=== PATIENT | male | born 2005 | race Caucasian/White ===

== ENCOUNTER 2025-01-19 15:39 | Emergency (ER) | payer BC, SELFPAY ==
--- OUTSIDE RECORDS SUMMARY | 2024-11-03 07:30 | XMS_ITS ---
Author Organization [facility] Address [address] [place] [address] Care Team Providers Care Improvement Lead Name Role Phone AylinSocorro davey Primary Care Provider Allergies Allergen (clinical drug ingredient) Drug/Non Drug Allergy documented on EMR Reaction Allergy Type Onset Date Status Penicillin rash Drug Allergy Active Results Component Value Reference Range Notes QUANTIFERON(R)-TB GOLD PLUS, 1 TUBE (Not yet reviewed by provider) Interpretation: Performing Lab:BONG, [facility]te[facility] Pittsburgh[address] Eulogio Wisdom Notes/Report: Received Date: FASTING QUANTIFERON(R)-TB [...] TB2 Antigen tube is coated with the M. tuberculosis-specific antigens designed to elicit responses from TB antigen primed CD4+ helper and CD8+ cytotoxic T-lymphocytes. For additional information, please refer to https://education.[employer]/faq/HXN628 (This link is being provided for informational/ educational purposes only.) LIPID PANEL Reviewed date:11/04/2024 09:51:21 AM Interpretation:chol 149 ldl 76 hdl 59 trig 48 Performing Lab:BONG [employer] [id number] 9[facility] [facility], [facility] CenterSedeQD[address] Eulogio Wisdom Notes/Report: Received Date: FASTING FASTING FASTING FASTING CHOLESTEROL, TOTAL 149 <200 mg/dL HDL CHOLESTEROL 59 > OR = 40 mg/dL TRIGLYCERIDES 48 <150 mg/dL LDL-CHOLESTEROL 76 Reference range: <100 Desirable range <100 mg/dL for primary prevention; <70 mg/dL for patients with CHD or diabetic patients with > or = 2 CHD risk factors. LDL-C is now calculated using the Patricia calculation, which is a validated novel method providing better accuracy than the Friedewald equation in the estimation of LDL-C. Luis MEMBRENO et al. KEENAN. 2013;310(19): 0033-7353 (http://education.Rukuku/faq/AMD542) CHOL/HDLC RATIO 2.5 <5.0 (calc) NON HDL CHOLESTEROL 90 <130 mg/dL (calc) For patients with diabetes plus 1 major ASCVD risk factor, treating to a non-HDL-C goal of <100 mg/dL (LDL-C of <70 mg/dL) is considered a therapeutic option. COMPREHENSIVE METABOLIC PANE L Reviewed date:11/04/2024 09:51:21 AM Interpretation:ast 44 Performing Lab:BONG [employer] [id number] [address] [facility], [facility] CenterDsapMG[address] Eulogio Wisdom Notes/Report: Received Date: FASTING FASTING [...] Reviewed date:11/04/2024 09:51:21 AM Interpretation:Normal Performing Lab:BONG, [employer] [id number] [address] [employer], Ludi labsBnwlFI[address] Eulogio Wisdom Notes/Report: Received Date: FASTING FASTING [...] MPV 10.9 7.5-12.5 fL ABSOLUTE NEUTROPHILS 2145 2749-2423 cells/uL ABSOLUTE LYMPHOCYTES 2684 850-3900 cells/uL ABSOLUTE MONOCYTES 594 200-950 cells/uL ABSOLUTE EOSINOPHILS 50 15-500 cells/uL ABSOLUTE BASOPHILS 28 0-200 cells/uL NEUTROPHILS 39 LYMPHOCYTES 48.8 MONOCYTES 10.8 EOSINOPHILS 0.9 BASOPHILS 0.5 TSH Reviewed date:11/04/2024 09:51:21 AM Interpretation:1.61 Performing Lab:BONG, [employer] [id number], StrandsIyahLG[address] Eulogio Wisdom Notes/Report: Received Date: FASTING FASTING [...] Signs Temperature 97.5 degrees Fahrenheit 11/04/19 25 Blood pressure systolic 120 mm Hg 11/04/19 25 Blood pressure diastolic 80 mm Hg 025 Heart Rate 65 /min 11/03/2024 Respiratory Rate 16 /min 11/03/2024 Height 70 in 11/03/2024 Weight 165 lbs 11/03/2024 BMI 23.67 kg/m2 11/03/2024 Oximetry 99 % 11/03/2024 Encounters Encounter Location Date Provider Diagnosis [facility] Isaac Villagomez [address] [address] 11/03/2024 Socorro Villagomez Annual physical exam Z00.00 [...] * BRO EASLEY:2005 ( 19 yo M)Acc No.[id number]:11/03/2024 Progress Notes Patient: LYNDA CATES Provider: Carmelina VILLAGOMEZ DO :2005 A ge:19 Y S ex:Male Date:11/03/2024 Address:[address] [place] [address] [address], [place] [address] Subjective: * Chief Complaints: * 1 . Establish. * HPI: D epression Screening: PHQ-2 (2015 Edition) L ittle interest or pleasure in doing things??Not at all F eeling down, depressed, or hopeless? N ot at all T otal Score 0 G eneral: pt here to est. care and for annual physical doing well [facility]. * ROS: G eneral/Constitutional: Patient [...] with exam. ? Assessment: * Assessment: 1. A nnual physical exam - Z00.00 (Primary) 2 . S creening for tuberculosis - Z11.1 Plan: * Treatment: Value Reference Range C olor LT YELLOW * C larity CLEAR * G lucose NEG * B ilirubin NEG * K etones NEG * S pecific [place] 1.020 * B lood NEG * p [...] * Procedure Codes: 8 0061 CARDIAC RISK, 43623 GENERAL HEALTH PANEL * Follow Up: 1 Year * * Electronic signature of Bashir Villagomez DO on 01/19/2025 at 06:02 PM CDT Sign off status: Pending * Provider: Carmelina VILLAGOMEZ DO Date: 0 11/03/2024 Generated for Carlos Enrique houston/Dottie/eTransmitting on: 0 01/19/2025 06:02 PM CDT History and Physical Notes * HPI (History of Present Illness) Category Sub-Category Detail Notes Category Not es General pt here to est. care and for annual physical doing well [facility] Depression Screening PHQ-2 (2015 Edition) Little interest or pleasure in doing things?: Not at all Feeling down, depressed, or hopeless?: N ot at all Total Score: 0 Examination Category Sub-Category Detail Notes Category Not es General Examination GENERAL APPEARANCE: in no ac [place] distress, well developed, well nourished HEAD: normocephalic, [...]
--- NOTE | ~2025-01-19 | CT_ITS ---
EXAMINATION: CT BRAIN W/O DATE: 01/19/2025 17:18 INDICATION: Dizziness. Vision changes. TECHNIQUE: Computed tomography (CT) of the head was performed without intravenous contrast. The dose-length product was 605.33 mGy-cm. Automated exposure control and iterative reconstruction technique were employed. COMPARISON: No prior studies for comparison. FINDINGS: Normal brain parenchymal volume for age. Normal smith-white differentiation. No acute intracranial hemorrhage, infarction, mass or mass effect. No ventriculomegaly or midline shift. Midline sagittal images demonstrate a normal corpus callosum, craniovertebral junction and sella turcica. Basilar cisterns are patent. Paranasal sinuses and mastoids are pneumatized. No depressed skull fractures. IMPRESSION: 1. No acute intracranial abnormality. Reviewed, dictated and finalized at location O.
--- OUTSIDE RECORDS SUMMARY | 2025-01-19 14:45 | XMS_ITS | Encounter Summary ---
Author Organization [facility] Healthcare Address [address] [place] [address] Care Team Providers Care Property And Supply Officer Name Role Phone Unknown, Notinfile Primary Care Provider Unavail able Reason for Visit * Reason Comments Dizziness Reports the last 2-3 days he feels like he's going to pass out. Has dizziness and blurred vision. Reports this is not with positional changes. Encounter Details Date Type Department Care Team (Late st Contact Info) Description 01/19/2025 2:45 PM CDT Office Visit [facility] at [address] [address] Catrachita Correa PA [address] [place] [address] [address] [place] [address] Dizziness (Primary Dx) Social History Tobacco Use Types Packs/Day Years Used Date Smoking Tobacco: Never Assessed Sex and Gender Information Value Date Recorded Sex Assigned at Not on file Legal Sex Male 2:29 PM CDT Gender Identity Not on file Sexual Orientation Not on file documented as of this encounter Last Filed Vital Signs Vital Sign Reading Time Taken Comments Blood Pressure 142/84 01/19/2025 2:44 PM CDT sta nding Pulse 74 01/19/2025 2:44 PM CDT Temperature 37.3 C (99.1 F) 01/19/2025 2:40 PM CDT Respiratory Rate 16 01/19/2025 2:40 PM CDT Oxygen Saturation 99% 01/19/2025 2:40 PM CDT Inhaled Oxygen Concentration - - Weight 73 kg (161 lb) 01/19/2025 2:40 PM CDT Height - - Body Mass Index - - documented in this encounter Progress Notes * Catrachita Correa PA - 01/19/2025 2:45 PM CDT Images from the original note were not included. Subjective/Objective Patient ID: Star Nicole is a 19 y.o. male. This patient has verbally consented to recording this visit in order to utilize AI technology in generating this note. Chief Complaint Dizziness (Reports the last 2-3 days he feels like he's going to pass out. Has dizziness and blurred vision. Reports this is not with positional changes.) History of Present Illness Star Nicole is a 19 year old male who presents with dizziness and lightheadedness for three days. Dizziness and presyncope - Dizziness and lightheadedness for three days, worsening today - Symptoms are episodic, occurring multiple times per day - Episodes frequently occur when sitting in class or driving - Sensation of near syncope during episodes - Blurry vision accompanies episodes of feeling faint - No chest pain, shortness of breath, headache, numbness, or tingling Caffeine intake - Consumed 400 mg of caffeine on Thursday, exceeding usual intake of 200 mg per day - Reduced caffeine intake to 200 mg on Thursday and none today - Dizziness persists despite reduction in caffeine intake Sleep pattern - Slept eight hours last night - Poor sleep in the nights prior to presentation Associated symptoms and exposures - No recent illness, upper respiratory symptoms, sore throat, or fever - Denies drug use or vaping Review of Systems All other systems reviewed and are negative. Physical Exam Physical Exam Constitutional: General: He is not in acute distress. HENT: Head: Normocephalic and atraumatic. Right Ear: External ear normal. Left Ear: External ear normal. Nose: Nose normal. Mouth/Throat: Pharynx: Oropharynx is clear. Eyes: Pupils: Pupils are equal, round, and reactive to light. Cardiovascular: Rate and Rhythm: Normal rate. Pulmonary: Effort: Pulmonary effort is normal. Musculoskeletal: General: Normal range of motion. Cervical back: Normal range of motion. Skin: General: Skin is warm and dry. Neurological: General: No focal deficit present. Mental Status: He is alert and oriented to person, place, and time. Cranial Nerves: No cranial nerve deficit. Motor: No weakness. Coordination: Coordination normal. Gait: Gait normal. Psychiatric: Mood and Affect: Mood normal. Behavior: Behavior normal. Vitals: 01/19/25 1440 01/19/25 1443 01/19/25 1444 BP: 124/64 134/82 142/84 Pulse: 74 73 74 Resp: 16 Temp: 37.3 ??C (99.1 ??F) SpO2: 99% Weight: 73 kg (161 lb) No results found. No past medical history on file. No current outpatient medications on file. Allergies Allergen Reactions Penicillins Rash Social History Tobacco Use Smoking status: None Smokeless tobacco: None Substance and Sexual Activity Drug use: None Sexual activity: None Alcohol Use: Not on file History reviewed. No pertinent surgical history. Procedures Assessment/Plan Results No results found for this or any previous visit (from the past 4 hours). Assessment & Plan Dizziness and presyncope with associated blurry vision Differential includes dehydration, electrolyte imbalance, cardiac or neurologic causes. Symptoms persist despite caffeine cessation. Vitals including orthostatics WNL. - Refer to ER for further evaluation and imaging -advise against driving himself due to presyncopal episode when driving here today, getting ride from a friend Diagnoses and all orders for this visit: Dizziness (Primary) Disposition ER JOSE Pinedo Cosigned by Harsh Villagran MD at 01/19/2025 3:03 PM CDT documented in this encounter Plan of Treatment Not on file documented as of this encounter Visit Diagnoses Diagnosis Dizziness- Primary Dizziness and giddiness documented in this encounter Care Teams Property And Supply Officer Relationship Specialty Start Date End Date Unknown, Notinfile PCP - General 01/19/25 documented as of this encounter
[2025-01-19 15:42] VITALS: BP 137/70; PULSE 67; RESP 18; TEMP 37.2; O2SAT 100
[2025-01-19 16:38] VITALS: PULSE 67; O2SAT 98
--- NOTE | 2025-01-19 16:58 | ED_ITS ---
HPI - Dizziness General Chief Complaint: Dizziness Stated Complaint: dizzy Time Seen by Provider: 01/19/25 16:25 History of Present Illness HPI Narrative: Patient is a 19-year-old male who presents to the ER with a 2 day history of dizziness, blurry vision, and near syncopal episodes. He reports he drank 400 mg of caffeine 2 days ago and started experiencing symptoms afterwards. Patient reports he only drank 200 mg of caffeine yesterday and has had no caffeine today. He reports his symptoms worsen when he sits up. Patient denies any headache, urinary symptoms, back pain, abdominal pain, nausea/vomiting, or recent sick contacts. He denies any other medical history relevant to this ER visit. Patient denies any recent sick contacts. Related Data Allergies Allergy/AdvReac Type Severity Reaction Status Date / Time Penicillins Allergy Intermediate Rash Verified 01/19/25 16:48 Review of Systems 2 Review of Systems: All systems reviewed & are unremarkable except as noted in HPI and below Exam 2 Narrative: GENERAL: Well appearing, well-nourished, non-toxic, in no acute distress. HEAD: Normocephalic, atraumatic. NECK: Supple. No adenopathy, no masses. RESPIRATORY: Airway patent, respirations nonlabored. Clear to auscultation bilaterally, no rales, rhonchi, wheezing. CARDIOVASCULAR: Regular rate and rhythm without murmurs, rubs, or gallops. Peripheral pulses 2+ and equal bilaterally. ABDOMINAL: Soft, nontender, nondistended, no hepatosplenomegaly. Normoactive BS. MUSCULOSKELETAL: Moves all extremities. Strength/ROM intact without gross deformities. SKIN: Warm, dry, normal color. No rashes. NEURO: A&O X3. Speech clear. Cranial nerves II-XII intact. No ataxic movements. PSYCHIATRIC: Appropriate mood and affect. Normal interaction. Course Vital Signs Vital signs: Vital Signs Temperature 37.2 C 01/19/25 15:42 Pulse Rate 67 01/19/25 15:42 Respiratory Rate 18 01/19/25 15:42 Blood Pressure 137/70 01/19/25 15:42 Pulse Oximetry 100 01/19/25 15:42 Oxygen Delivery Room Air 01/19/25 15:42 Temperature 37.2 C 01/19/25 15:42 Pulse Rate 70 01/19/25 17:30 Respiratory Rate 18 01/19/25 15:42 Blood Pressure 117/75 01/19/25 17:30 Pulse Oximetry 100 01/19/25 17:30 Oxygen Delivery Room Air 01/19/25 16:38 MDM - Dizziness MDM Narrative Medical decision making narrative: Patient is a 19-year-old male who presents to the ER with a 2 day history of dizziness, blurry vision, and near syncopal episodes. He reports he drank 400 mg of caffeine 2 days ago and started experiencing symptoms afterwards. Patient reports he only drank 200 mg of caffeine yesterday and has had no caffeine today. He reports his symptoms worsen when he sits up. Patient denies any headache, urinary symptoms, back pain, abdominal pain, nausea/vomiting, or recent sick contacts. He denies any other medical history relevant to this ER visit. Patient denies any recent sick contacts. Labs Ordered: CBC, CMP, UA, UDS Imaging Ordered: CT brain Medications Ordered: None necessary, patient declined meclizine Results: Patient's CBC, CMP, and UA were unremarkable. Diagnosis: vertigo Patient Education/Shared MDM: Results of lab work and imaging shared with patient. He reports he does not want a meclizine here in the ER as he has to drive home. Patient strongly advised to maintain hydration status upon discharge and follow-up with his PCP as soon as possible. He will be discharged home with a prescription for Meclizine. Strict return precautions provided. Patient verbalized understanding and is in agreement with plan. Vital signs stable at time of discharge. All questions answered. Differential Diagnosis Differential diagnosis: Likely benign paroxysmal positional vertigo, orthostatic hypotension and cerebrovascular accident Lab Data Attestation: I reviewed the patient's lab results. 01/19/25 17:10 01/19/25 17:10 Labs: Lab Results 01/19/25 Range/Units 17:10 WBC 6.4 (4.5-10.0) K/mm3 RBC 5.34 (4.6-6.20) M/mm3 Hgb 15.5 (14.0-18.0) g/dL Hct 45.5 (42.0-52.0) % MCV 85.2 (80-100) fl MCH 29.0 (26-34) pg MCHC 34.1 (32-36) g/dl RDW 12.1 (11.5-14.5) % Plt Count 243 (150-375) k/mm3 MPV 10.5 H (7.4-10.4) fl Immature Gran % (Auto) 0.2 (0-0.5) % Neut % (Auto) 51.1 (45.5-73.1) % Lymph % (Auto) 39.0 (18.3-44.2) % Pleasants % (Auto) 8.6 H (2.6-8.5) % Eos % (Auto) 0.5 (0-4.4) % Baso % (Auto) 0.6 (0.2-1.2) % Lymph # (Auto) 2.50 (0.9-3.2) K/mm3 Pleasants # (Auto) 0.6 (0.1-0.6) K/mm3 Eos # (Auto) 0.0 (0-0.3) K/mm3 Baso # (Auto) 0.0 (0.0-0.1) K/mm3 Abs Immat Gran (auto) 0.01 (0.00-0.031) K/mm3 Absolute Neuts (auto) 3.3 (1.3-6.7) K/mm3 Absolute Nucleated RBC 0.000 (0.0-0.012) K/mm3 Nucleated RBC % 0.0 (0.0-0.2) % Sodium 140 (137-145) mmol/L Potassium 4.3 (3.4-5.0) mmol/L Chloride 101 (98-107) mmol/L Carbon Dioxide 29 (22-30) mmol/L Anion Gap 10 (4-12) mmol/L BUN 13 (9-20) mg/dL Creatinine 0.90 (0.7-1.3) mg/dL Estim Creat Clear Calc 118 ml/min Estimated GFR > 60 (59 - ) Glucose 81 (65-110) mg/dL Calcium 9.2 (8.4-10.2) mg/dL Total Bilirubin 0.7 (0.2-1.3) mg/dL AST 29 (17-59) U/L ALT 20 (6-50) U/L Alkaline Phosphatase 53 (38-126) U/L Total Protein 7.6 (6.3-8.2) g/dL Albumin 4.9 (3.5-5.1) g/dL Urine Color Yellow (Yellow) Urine Appearance Turbid H (Clear) Urine pH 8.5 (5.0-9.0) Ur Specific Monroe 1.021 (1.001-1.035) Urine Protein Negative (Negative) mg/dL Urine Glucose (UA) Negative (Negative) mg/dL Urine Ketones Negative (Negative) mg/dL Ur Blood (Man) Negative (Negative) Urine Nitrate Negative (Negative) Urine Bilirubin Negative (Negative) Urine Urobilinogen 0.2 (<2.0) mg/dL Leukocyte Esterase Rfl Negative (Negative) ERIC/UL Urine RBC 0-2 (0-2) /hpf Urine WBC 0-5 (0-3) /hpf Ur Squamous Epith Cells None seen (Few) /hpf Urine Bacteria None seen /hpf Urine Casts 0-2 Urine Opiates Screen Negative (Negative) Urine Methadone Screen Negative (Negative) Ur Barbiturates Screen Negative (Negative) Ur Phencyclidine Scrn Negative (Negative) Ur Amphetamine Screen Negative (Negative) U Benzodiazepines Scrn Negative (Negative) Urine Cocaine Screen Negative (Negative) U Cannabinoids Screen Negative (Negative) Imaging Data Attestation: I personally reviewed and interpreted this imaging study as follows: Radiologist's impression: Impressions Head CT 01/19/25 17:18 IMPRESSION: 1. No acute intracranial abnormality. Discharge Plan Discharge Clinical Impression: Benign paroxysmal positional vertigo Patient Disposition: Home Condition: Stable Instructions: Antibiotic Form, Benign Paroxysmal Positional Vertigo (ED) Additional Instructions: Please return to the ER with any worsening symptoms. Follow-up with primary care provider as needed. Take all medications as prescribed. Please schedule appoint with your nose and throat if your symptoms do not improve. Patient Language: Japanese Prescriptions: New meclizine 25 mg tablet 25 mg PO TID Qty: 30 0RF Follow-up/Referrals: Tam Yeboah MD [Physician, Ear, Nose, Throat] Referral Note: ENT PHYSICIAN NOT ON STAFF,NONSTAFF [Non-Staff] Doug Rice MD [Physician, Family Practice] Referral Note: primary care provider Stand Alone Forms: Work/School Release IP Time of Disposition: 18:56
[2025-01-19 17:18] LABS: Hematocrit 45.5 % (42.0-52.0); Hemoglobin 15.5 g/dL (14.0-18.0); Immature Granulocyte Percent A 0.2 % (0-0.5); Lymphocytes Absolute Auto 2.50 K/mm3 (0.9-3.2); Mean Corpuscular HGB Conc 34.1 g/dl (32-36); Mean Corpuscular Hemoglobin 29.0 pg (26-34); Mean Corpuscular Volume 85.2 fl (80-100); Nucleated Red Blood Cells Absolute Auto 0.000 K/mm3 (0.0-0.012); Nucleated Red Blood Cells Perc 0.0 % (0.0-0.2); Platelet Count Result 243 k/mm3 (150-375); Red Blood Count 5.34 M/mm3 (4.6-6.20); White Blood Count 6.4 K/mm3 (4.5-10.0)
[2025-01-19 17:22] LABS: Add Urine Microscopic? YES; Appearance Urine Turbid (Clear); Glucose Urine UA Negative (Negative); Leukocyte Esterase Ur Negative LEU/UL (Negative); Nitrate Urine Negative (Negative); Non Pathogenic Casts 0-2; Specific Grav Ur 1.021 (1.001-1.035)
[2025-01-19 17:30] VITALS: BP 117/75; PULSE 70; O2SAT 100
[2025-01-19 17:34] LABS: Alanine Aminotransferase 20 U/L (6-50); Albumin Level 4.9 g/dL (3.5-5.1); Alkaline Phosphatase 53 U/L (38-126); Anion Gap 10 mmol/L (4-12); Aspartate Amino Transferase 29 U/L (17-59); Bilirubin,Total 0.7 mg/dL (0.2-1.3); Blood Urea Nitrogen 13 mg/dL (9-20); Calcium 9.2 mg/dL (8.4-10.2); Carbon Dioxide 29 mmol/L (22-30); Chloride 101 mmol/L (98-107); Estimated CRCL calculation 118 ml/min; Estimated Glomerular Filt Rate > 60; Glucose 81 mg/dL (65-110); Potassium 4.3 mmol/L (3.4-5.0); Sodium 140 mmol/L (137-145); Total Protein 7.6 g/dL (6.3-8.2)
[2025-01-19 17:51] LABS: Cannabinoid Screen Urine Negative (Negative)
--- OUTSIDE RECORDS SUMMARY | 2025-01-19 18:02 | XMS_ITS | Patient Health Record ---
Author Organization [facility] Address [address] [place] [address] Care Team Providers Care Mining Consultant Name Role Phone Zion FARIA, Sandor Primary Care Provider JONI Conrad Unavailable [phone] Allergies Allergen (clinical drug ingredient) Drug/Non Drug Allergy documented on EMR Reaction Allergy Type Onset Date Status PENICILLIN Unknown Drug Allergy Active Reason For Referral No Information Problems Problem Type SNOMED Code ICD Code Onset Dates Problem Status W/U Status Risk Notes Problem Chronic disease of tonsils AND/OR adenoids (86258038) Other chronic diseases of tonsils and adenoids (J35.8) Active confirmed Problem Bad breath - halitosis (69087438) Halitosis (R19.6) Active confirmed Plan Of Treatment No Information Insurance Providers Payer Name Payer Address Payer Phone Subscriber Number Group Number Insured Name Patient Relationship to Insured Coverage Start Date Coverage End Date [facility] [address] [place], [place] [id number] MILAD EASLEY Child - Insured has Financial Responsibility
--- OUTSIDE RECORDS SUMMARY | 2025-01-19 18:03 | XMS_ITS | Patient Health Record ---
Author Organization [facility] Address [address] [id number] Care Team Providers Care Tie Man Name Role Phone ROSA ISELA WHITE Primary Care Provider [phone] Allergies Allergen (clinical drug ingredient) Drug/Non Drug Allergy documented on EMR Reaction Allergy Type Onset Date Status amoxicillin Amoxicillin rash Drug Allergy Act dalia Reason For Referral No Information Immunizations Vaccine Route Administration Date Status Comme nts Varivax Unknown 03/14/2004 Administered Varivax Unknown 03/18/2007 Administered VAQTA Ped/Adol (HepA) syr Unknown 04/04/2009 Administered VAQTA Ped/Adol (HepA) syr Unknown 03/25/2010 Administered Trumenba IM Intramuscular 08/08/2021 Administered Prevnar Pneum V-7 Unknown 2003 Administered Prevnar Pneum V-7 Unknown 2003 Administered Prevnar Pneum V-7 Unknown 2003 Administered Prevnar Pneum V-7 Unknown 06/06/2004 Administered MMR II Unknown 03/14/2004 Administered MMR II Unknown 03/18/2007 Administered Menactra IM Intramuscular 10/23/2014 Administered Pt jermain almaz 5 minutes in the room, 10 minutes in the wtg room after shots to check for faintness. LILLIAM LEE. Menactra IM Intramuscular 06/24/2019 Administered IPOL Unknown 2003 Administered IPOL Unknown 2003 Administered IPOL Unknown 2003 Administered IPOL Unknown 05/24/2008 Administered Gardasil 9 syr IM Intramuscular 08/08/2021 Administered Gardasil 9 syr Unknown 10/10/2021 Administered Fluzone Quadrivalent >3yr syr IM Intramuscular 03/24/2013 Administered Fluzone Quadrivalent >3yr syr 0 02/04/2014 Administered Flumist Trivalent Unknown 04/14/2011 Administered Flu Tri PF 3yr &> IM Intramuscular 03/22/2012 Administered DAPTACEL (DTap) Unknown 2003 Administered DAPTACEL (DTap) Unknown 2003 Administered DAPTACEL (DTap) Unknown 2003 Administered DAPTACEL (DTap) Unknown 06/06/2004 Administered DAPTACEL (DTap) Unknown 05/24/2008 Administered Comvax (Hep B and Hib) Unknown 2003 Administered Comvax (Hep B and Hib) Unknown 2003 Administered Comvax (Hep B and Hib) Unknown 06/06/2004 Administered Adacel (Tdap) IM Intramuscular 03/24/2013 Administered Tda p is upper shot. Social History Tobacco Use: Social History Observation Description Date Details (start date - stop date) Never Smoker NA - NA Alcohol Question Answer Notes Did you have a drink containing alcohol in the p ast year? No Points 0 Interpretation Negative Household Smoke: Question Answer Notes Smoker in Household: no SECOND HAND SMOKE ASSESSMENT: Performed TOBACCO USE - Question Answer Notes Are you a: non tobacco user EXERCISE ASSESSMENT Question Answer Notes -ASSESSMENT PERFORMED: Yes How active are you? I'm physically activ e and don't need help to be more active How many times a week & arabella emeka per session do you exercise or participate in physical activity? 3-4 What type of exercise do you regularly do? organized sports Problems Problem Type SNOMED Code ICD Code Onset Dates Problem Status W/U Status Risk Notes Problem History of tonsillectomy (situation) (939903467) S/P tonsillectomy (Z90.89) Active confirmed Problem Tonsillolith (5273066) Tonsillolith (J35.8) Active confirmed Plan Of Treatment No Information Insurance Providers Payer Name Payer Address Payer Phone Subscriber Number Group Number Insured Name Patient Relationship to Insured Coverage Start Date Coverage End Date [facility] [address] [place], [place] [id number] Liliana Nicole Child - Insured has Financial Responsibility Medical (General) History Medical History History ICD Code Tonsil stones Chronic seasonal throat infection Full term born @ [facility] - sect ion Dry cough 786.2 Chronic tonsillitis J35.01 Surgical History Surgery Date(Month/Year) Hospitalization History Reason Date(Month/Year) orbital cellulitis 2004
--- OUTSIDE RECORDS SUMMARY | 2025-01-19 18:03 | XMS_ITS | Clinical Summary ---
Author Organization [facility] (Prior to 02/08/22) Address [address] [place] [address] Care Team Providers Care Senior Marketing Manager Name Role Phone Unavailable Primary Care Provider Unavailabl e Social History Tobacco Use Types Packs/Day Years Used Date Never Assessed Sex Assigned at Date Recorded Not on file Plan of Treatment Health Maintenance Due Date Last Done Comments Annual Wellness Visit 2003 COVID-19 Vaccine (#1) 2003 Influenza Vaccine 01/09/2025
--- OUTSIDE RECORDS SUMMARY | 2025-01-19 18:03 | XMS_ITS | Patient Health Record ---
Author Organization [facility] Address [address] [place] [address] Care Team Providers Care Poultry Picker Name Role Phone AylinSocorro davey Primary Care Provider Allergies Allergen (clinical drug ingredient) Drug/Non Drug Allergy documented on EMR Reaction Allergy Type Onset Date Status Penicillin rash Drug Allergy Active Results Component Value Reference Range Notes Automated Urinalysis (dipsti ck) Reviewed date:11/04/2024 09:51:21 AM Interpretation:Normal Performing Lab: Notes/Report: Normal Color LT YELLOW Clarity CLEAR Glucose NEG Bilirubin NEG Ketones NEG Specific [place] 1.020 Blood NEG pH 6.5 Protein NEG Urobilinogen NORM Nitrites NEG Leukocytes NEG QUANTIFERON(R)-TB GOLD PLUS, 1 TUBE (Not yet reviewed by provider) Interpretation: Performing Lab:CB, [facility], [facility] HospitalSciyFT[address] Eulogio Wisdom Notes/Report: Received Date: FASTING QUANTIFERON(R)-TB [...] T-lymphocytes. For additional information, please refer to https://kompany.Meedor/faq/QRX606 (This link is being provided for informational/ educational purposes only.) TSH Reviewed date:11/04/2024 09:51:21 AM Interpretation:1.61 Performing Lab:BONG, [facility] [employer], SnagFilmsGtveVH[address] Eulogio Wisdom Notes/Report: Received Date: FASTING FASTING FASTING FASTING TSH 1.61 0.40-4.50 mIU/L CBC (INCLUDES DIFF/PLT) Reviewed date:11/04/2024 09:51:21 AM Interpretation:Normal Performing Lab:BONG, [facility] [employer], SnagFilmsTyyxZL[address] Eulogio Wisdom Notes/Report: Received Date: FASTING FASTING [...] MPV 10.9 7.5-12.5 fL ABSOLUTE NEUTROPHILS 2145 2788-3799 cells/uL ABSOLUTE LYMPHOCYTES 2684 850-3900 cells/uL ABSOLUTE MONOCYTES 594 200-950 cells/uL ABSOLUTE EOSINOPHILS 50 15-500 cells/uL ABSOLUTE BASOPHILS 28 0-200 cells/uL NEUTROPHILS 39 LYMPHOCYTES 48.8 MONOCYTES 10.8 EOSINOPHILS 0.9 BASOPHILS 0.5 COMPREHENSIVE METABOLIC PANE L Reviewed date:11/04/2024 09:51:21 AM Interpretation:ast 44 Performing Lab:BONG [facility] [place], [facility] HospitalPlmrNH[address] Eulogio Wisdom Notes/Report: Received Date: FASTING FASTING FASTING FASTING GLUCOSE 89 65-99 mg/dL Fasting reference interval UREA NITROGEN (BUN) 11 7-25 mg/dL CREATININE 0.97 0.60-1.24 mg/dL EGFR 114 > OR = 60 mL/min/1.73m2 BUN/CREATININE RATIO SEE NOTE: 6- (calc) Not Reported: BUN and Creatinine are [...] 44 10-40 U/L ALT 40 9-46 U/L LIPID PANEL Reviewed date:11/04/2024 09:51:21 AM Interpretation:chol 149 ldl 76 hdl 59 trig 48 Performing Lab:BONG [facility]1355 [facility] [place], [facility] HospitalYkmdYY[address] Eulogio Wisdom Notes/Report: Received Date: FASTING FASTING [...] LDL-C. Luis MEMBRENO et al. KEENAN. 2013;310(19): 5353-2604 (http://education.Inktank/faq/YTX861) CHOL/HDLC RATIO 2.5 <5.0 (calc) NON HDL CHOLESTEROL 90 <130 mg/dL (calc) For patients with diabetes plus 1 major ASCVD risk factor, treating to a non-HDL-C goal of <100 mg/dL (LDL-C of <70 mg/dL) is considered a therapeutic option. Reason For Referral No Information Immunizations Vaccine Route Administration Date Status Comme nts DTaP Unknown 2003 Administered DTaP Unknown 2003 Administered DTaP Unknown 2003 Administered DTaP Unknown 06/06/2004 Administered DTaP Unknown 05/24/2008 Administered Hep A, ped/adol, 2 dose Unknown 04/04/2009 Administered Hep A, ped/adol, 2 dose Unknown 03/25/2010 Administered Hib-Hep B Unknown 2003 Administered Hib-Hep B Unknown 2003 Administered Hib-Hep B Unknown 06/06/2004 Administered HPV Unknown 08/08/2021 Administered HPV Unknown 10/10/2021 Administered IPV Unknown 2003 Administered IPV Unknown 2003 Administered IPV Unknown 2003 Administered IPV Unknown 05/24/2008 Administered menactra Unknown 10/23/2014 Administered menactra Unknown 06/24/2019 Administered Meningococcal B Trumenba Unknown 08/08/2021 Administere d MMR Unknown 03/14/2004 Administered MMR Unknown 03/18/2007 Administered Pneumococcal Unknown 2003 Administered Pneumococcal Unknown 2003 Administered Pneumococcal Unknown 2003 Administered Pneumococcal Unknown 06/06/2004 Administered Tdap Unknown 03/24/2013 Administered Tdap Unknown 10/06/2024 Administered Varicella Unknown 03/14/2004 Administered Varicella Unknown 03/18/2007 Administered Social History Tobacco Use: Social History Observation [...] point) Points 3 Interpretation Negative Vital Signs Heart Rate 74 /min 11/29/2024 Temperature 98.2 degrees Fahrenheit 11/29/2024 Respiratory Rate 16 /min 11/03/2024 Oximetry 98 % 11/29/2024 Blood pressure diastolic 70 mm Hg 11/29/2024 Height 70 in 11/29/2024 Blood pressure systolic 110 mm Hg 11/29/2024 Weight 165 lbs 11/29/2024 BMI 23.67 kg/m2 11/29/2024 Encounters Encounter Location Date Provider Diagnosis [facility] Isaacang Altamirano [address] [place] [phone] 11/03/2024 Socorro Altamirano Annual physical exam Z00.00 and Screening for tuberculosis Z11.1 [facility] Isaacfrancois Altamirano [address] [place] [phone] 11/29/2024 Socorro Altamirano Ear discomfort H92.0 9 Assessments Encounter Date Diagnosis (ICD Code) Assessment Notes Treatment Notes Treatment Clinical Notes Section Notes 11/03/2024 Annual physical exam (ICD-10 - Z00.00) - Patient is overall healthy with a normal physical exam - He is up to date with all his immunizations - Screening for TB was done and returned negative 11/03/2024 Screening for tuberculosis (ICD-10 - Z11.1) 11/29/2024 Ear discomfort (ICD-10 - H92.09) Patient instructed to take 10 mg Claritin daily. Patient also instructed to put mineral oil in the ears. Call Thursday, if nto better will write steroid prescription. 11/29/2024 Other Patient seen by Emperatriz Ardon OMS-III, supervised by Dr. Socorro Altamirano Plan Of Treatment Pending Test Test Name Order Date QUANTIFERON(R)-TB GOLD PLUS, 1 TUBE 10/10 Insurance Providers Payer Name Payer Address Payer Phone Subscriber Number Group Number Insured Name Patient Relationship to Insured Coverage Start Date Coverage End Date [facility] [address] [place] [address] [id number] Liliana Easley Child - Insured has Financial Responsibility Medical (General) History Surgical History Surgery Date(Month/Year) tonsillectomy
--- OUTSIDE RECORDS SUMMARY | 2025-01-19 18:03 | XMS_ITS | Clinical Summary ---
Author Organization [facility] Address [address] [place] [address] Care Team Providers Care Coding Technician Name Role Phone Sandor Donovan MD Primary Care Provider +1- [phone] Social History Tobacco Use Types Packs/Day Years Used Date Smoking Tobacco: Never Assessed Inadequate Housing Answer Date Recorded Social Determinants: Housing (Overall Score Help er) 0 01/07/2019 Sex and Gender Information Value Date Recorded Sex Assigned at Not on file Legal Sex Male 1:20 PM CDT Gender Identity Not on file Sexual Orientation Not on file Last Filed Vital Signs Vital Sign Reading Time Taken Comments Blood Pressure 116/69 09/25/2016 1:49 PM CDT Pulse 72 09/25/2016 1:49 PM CDT Temperature 36.9 C (98.4 F) 09/25/2016 1:49 PM CDT Respiratory Rate - - Oxygen Saturation - - Inhaled Oxygen Concentration - - Weight 42.5 kg (93 lb 11.1 oz) 01/05/2017 7:41 A M CDT Height - - Body Mass Index - - Plan of Treatment Health Maintenance Due Date Last Done Comments Well Child Visit (ages 3 - 21) 2006 Depression Screening 2015 Varicella Vaccine (1 of 2 - 13+ 2-dose series) 2016 HPV Vaccine (1 - Male 3-dose series) 2018 Meningococcal Serogroup B Va ccine (1 of 2 - Standard) 2019 DTaP/Tdap/Td Vaccine (1 - Tdap) 2022 Hepatitis B Vaccine (1 of 3 - 19+ 3-dose series) 2022 COVID-19 Vaccine (2023-2 5 season) 2025 Influenza Vaccine (#1) 2025 Hepatitis A Vaccine Aged Out No longe r eligible based on patient's age to complete this topic Meningococcal Vaccine Aged Out No lenore aquiles eligible based on patient's age to complete this topic Pneumococcal Vaccine 0-49 Aged Out No longer eligible based on patient's age to complete this topic Insurance [facility] Care Teams Coding Technician Relationship Specialty Start Date End Date Sandor Donovan MD PCP - General Pediatrics 07/06/19
--- OUTSIDE RECORDS SUMMARY | 2025-01-19 18:03 | XMS_ITS | Clinical Summary ---
Author Organization [facility] [address] Address [address] [place] [phone] Care Team Providers Care Biller Name Role Phone Unknown, Notinfile Primary Care Provider Unavail able Allergies Active Allergy Reactions Criticality Noted Date Comments Penicillins Rash Medium 01/19/2025 Medications No known medications Active Problems No known active problems Encounters Date Type Department Care Team Description 01/19/2025 2:45 PM CDT Office Visit [facility] Convenient Care at [address] [address] Catrachita Correa PA Dizziness (Primary Dx) from Last 3 Months Social History Tobacco Use Types Packs/Day Years Used Date Smoking Tobacco: Never Assessed Sex and Gender Information Value Date Recorded Sex Assigned at Not on file Legal Sex Male 2:29 PM CDT Gender Identity Not on file Sexual Orientation Not on file Obstetrics History Last Filed Vital Signs Vital Sign Reading [...] Health Maintenance Due Date Last Done Comments Depression Screening 2003 Hepatitis C Screening 2003 Regular Well Visit/Exam 18-64 2021 HPV Vaccines (3 - Male 3-dos e series) 02/07/2022 10/10/2021, 08/08/2021 Meningococcal B Vaccine (2 o f 2 - Trumenba SCDM 2-dose series) 02/07/2022 08/08/2021 DTaP/Tdap/Td Vaccine (8 - Td or Tdap) 10/06/2034 10/06/2024, 03/24/2013, 05/24/2008, Additional history exists Hepatitis B Screening Completed 06/06/2004 , 2003, 2003 Pneumococcal vaccine <65 Completed 005, 2003, 2003, Additional history exists Varicella Vaccines Completed 03/18/2007, 03/14/2004 Meningococcal Vaccine Completed 06/24/2019, 015 Influenza Vaccine Completed 01/13/2025, , 03/24/2013, Additional history exists Insurance [facility] Care Teams Biller Relationship Specialty Start Date End Date Unknown, Notinfile PCP - General 01/19/25
[2025-01-19 19:05] VITALS: BP 116/61; PULSE 73; RESP 16; O2SAT 97
== END 2025-01-19 19:05 | disposition home or self-care (01) ==
PROVIDERS: Emergency Provider Registered Nurse
DX: H81.10 Benign paroxysmal vertigo, unspecified ear (principal); Z79.899 Other long term (current) drug therapy; Z79.52 Long term (current) use of systemic steroids
CPT/HCPCS: 36415; 70450; 80053; 80307; 81001; 85025; 99284

== ENCOUNTER 2025-01-31 10:18 | Outpatient (CLI) | payer BC, SELFPAY ==
--- OUTSIDE RECORDS SUMMARY | 2024-11-03 07:30 | XMS_ITS ---
Author Organization [facility] Address [address] [place] [address] Care Team Providers Care Ad Copy Writer Name Role Phone AylinSocorro davey Primary Care Provider [phone] Allergies Allergen (clinical drug ingredient) Drug/Non Drug Allergy documented on EMR Reaction Allergy Type Onset Date Status Penicillin rash Drug Allergy Active Results Component Value Reference Range Notes QUANTIFERON(R)-TB GOLD PLUS, 1 TUBE (Not yet reviewed by provider) Interpretation: Performing Lab:BONG, [facility] Eulogio Wisdom Notes/Report: Received Date: FASTING QUANTIFERON(R)-TB GOLD PLUS, 1 TUBE NEGATIVE NEGATIVE Negative test result. M. tuberculosis complex infection unlikely. NIL 0.02 MITOGEN-NIL 8.94 TB1-NIL 0.03 TB2-NIL 0.03 The Nil tube value reflects the background interferon gamma immune response of the patient's blood sample. This value has been subtracted from the patient's displayed TB and Mitogen results. Lower than expected results with the Mitogen tube prevent false-negative Quantiferon readings by detecting a patient with a potential immune suppressive condition and/or suboptimal pre-analytical specimen handling. The TB1 Antigen tube is coated with the M. tuberculosis-specific antigens designed to elicit responses from TB antigen primed CD4+ helper T-lymphocytes. The TB2 Antigen tube is coated with the cytotoxic T-lymphocytes. For additional information, please refer to https://education.[place]60.com/faq/TGB985 (This link is being provided for informational/ educational purposes only.) M. tuberculosis-specific antigens designed to elicit responses from TB antigen primed CD4+ helper and CD8+ LIPID PANEL Reviewed date:11/04/2024 09:51:21 AM Interpretation:chol 149 ldl 76 hdl 59 trig 48 Performing Lab:BONG [facility] ([facility]) [id number] [facility], [facility] CenterCgbvMW[address] Eulogio Wisdom Notes/Report: Received Date: FASTING FASTING FASTING FASTING CHOLESTEROL, TOTAL 149 <200 mg/dL HDL CHOLESTEROL 59 > OR = 40 mg/dL TRIGLYCERIDES 48 <150 mg/dL LDL-CHOLESTEROL 76 Reference range: <100 Desirable range <100 mg/dL for primary prevention; <70 mg/dL for patients with CHD or diabetic patients with > or = 2 CHD risk factors. LDL-C is now calculated using the Luis-Hodges calculation, which is a validated novel method providing better accuracy than the Friedewald equation in the estimation of LDL-C. Luis MEMBRENO et al. KEENAN. 2013;310(19): 2344-1626 (http://M[employer] Project.Front Row/faq/VFR663) CHOL/HDLC RATIO 2.5 <5.0 (calc) NON HDL CHOLESTEROL 90 <130 mg/dL (calc) For patients with diabetes plus 1 major ASCVD risk factor, treating to a non-HDL-C goal of <100 mg/dL (LDL-C of <70 mg/dL) is considered a therapeutic option. COMPREHENSIVE METABOLIC PANE L Reviewed date:11/04/2024 09:51:21 AM Interpretation:ast 44 Performing Lab:BONG [facility] ([facility]) [id number] [employer], [facility] CenterMmqxRM[address] Eulogio Wisdom Notes/Report: Received Date: FASTING FASTING FASTING FASTING GLUCOSE 89 65-99 mg/dL Fasting reference interval UREA NITROGEN (BUN) 11 7-25 mg/dL CREATININE 0.97 0.60-1.24 mg/dL EGFR 114 > OR = 60 mL/min/1.73m2 BUN/CREATININE RATIO SEE NOTE: 6-22 (calc) Not Reported: BUN and Creatinine are within reference range. SODIUM 140 135-146 mmol/L POTASSIUM 4.1 3.5-5.3 mmol/L CHLORIDE 103 98-110 mmol/L CARBON DIOXIDE 29 20-32 mmol/L CALCIUM 9.6 8.6-10.3 mg/dL PROTEIN, TOTAL 6.9 6.1-8.1 g/dL ALBUMIN 4.9 3.6-5.1 g/dL GLOBULIN 2.0 1.9-3.7 g/dL (calc) ALBUMIN/GLOBULIN RATIO 2.5 1.0-2.5 (calc) BILIRUBIN, TOTAL 1.1 0.2-1.2 mg/dL ALKALINE PHOSPHATASE 56 36-130 U/L AST 44 10-40 U/L ALT 40 9-46 U/L CBC (INCLUDES DIFF/PLT) Reviewed date:11/04/2024 09:51:21 AM Interpretation:Normal Performing Lab:BONG, [facility] ([facility]) [id number] Ship[employer] [place], Qunar.comWpbaYT[address] Eulogio Wisdom Notes/Report: Received Date: FASTING FASTING FASTING FASTING WHITE BLOOD CELL COUNT 5.5 3.8-10.8 Thousand/ uL RED BLOOD CELL COUNT 5.15 4.20-5.80 Million/uL HEMOGLOBIN 15.5 13.2-17.1 g/dL HEMATOCRIT 47.8 38.5-50.0 % MCV 92.8 80.0-100.0 fL MCH 30.1 27.0-33.0 pg MCHC 32.4 32.0-36.0 g/dL For adults, a slight decrease in the calculated MCHC value (in the range of 30 to 32 g/dL) is most likely not clinically significant; however, it should be interpreted with caution in correlation with other red cell parameters and the patient's clinical condition. RDW 12.9 11.0-15.0 % PLATELET COUNT 227 140-400 Thousand/uL MPV 10.9 7.5-12.5 fL ABSOLUTE NEUTROPHILS 2145 0416-8377 cells/uL ABSOLUTE LYMPHOCYTES 2684 850-3900 cells/uL ABSOLUTE MONOCYTES 594 200-950 cells/uL ABSOLUTE EOSINOPHILS 50 15-500 cells/uL ABSOLUTE BASOPHILS 28 0-200 cells/uL NEUTROPHILS 39 LYMPHOCYTES 48.8 MONOCYTES 10.8 EOSINOPHILS 0.9 BASOPHILS 0.5 TSH Reviewed date:11/04/2024 09:51:21 AM Interpretation:1.61 Performing Lab:BONG, [facility] ([facility]) [id number], SecureAuthSohtMS[address] Eulogio Wisdom Notes/Report: Received Date: FASTING FASTING FASTING FASTING TSH 1.61 0.40-4.50 mIU/L REASON FOR VISIT Establish Social History Tobacco Use: Social History Observation Description Date Details (start date - stop date) Never Smoker NA - NA Sex Assigned At : Social History Observation Description Sex Assigned At Male Tobacco Control (Standard) Question Answer Notes Tobacco use: Nonsmoker AUDIT-C (Standard) Question Answer Notes Did you have a drink contain ing alcohol in the past year? Yes How often did you have a dri nk containing alcohol in the past year? Monthly or less (1 point) How many drinks did you have on a typical day when you were drinking in the past year? 5 or 6 drinks (2 points) How often did you have six o r more drinks on one occasion in the past year? Never (0 point) Points 3 Interpretation Negative Vital Signs Temperature 97.5 degrees Fahrenheit 11/04/19 25 Heart Rate 65 /min 11/03/2024 Blood pressure systolic 120 mm Hg 11/04/19 25 Blood pressure diastolic 80 mm Hg 025 Weight 165 lbs 11/03/2024 Height 70 in 11/03/2024 BMI 23.67 kg/m2 11/03/2024 Respiratory Rate 16 /min 11/03/2024 Oximetry 99 % 11/03/2024 Encounters Encounter Location Date Provider Diagnosis [facility] Isaac Villagomez [address] [address] 11/03/2024 Socorro Villagomez Annual physical exam Z00.00 and Screening for tuberculosis Z11.1 Assessments Encounter Date Diagnosis (ICD Code) Assessment Notes Treatment Notes Treatment Clinical Notes Section Notes 11/03/2024 Annual physical exam (ICD-10 - Z00.00) - Patient is overall healthy with a normal physical exam - He is up to date with all his immunizations - Screening for TB was done and returned negative 11/03/2024 Screening for tuberculosis (ICD-10 - Z11.1) Plan Of Treatment Treatment Notes Assessment Notes Annual physical exam - Patient is overall healthy with a normal physical exam - He is up to date with all his immunizations - Screening for TB was done and returned negative Pending Test Test Name Order Date QUANTIFERON(R)-TB GOLD PLUS, 1 TUBE 10/10 Next Appt Details Follow Up: 1 Year, Reason: Progress Notes * BRO EASLEY:2005 ( 19 yo M)Acc No.[id number]:11/03/2024 Progress Notes Patient: LYNDA CATES Provider: Carmelina VILLAGOMEZ DO :2005 A ge:19 Y S ex:Male Date:11/03/2024 Address:[address] [place] [address] [address], [place] [address] Subjective: * Chief Complaints: * 1 . Establish. * HPI: D epression Screening: PHQ-2 (2015 Edition) L ittle interest or pleasure in doing things??Not at all F eeling down, depressed, or hopeless? N ot at all T otal Score 0 G eneral: pt here to est. care and for annual physical [facility]. * ROS: G eneral/Constitutional: Patient denies c hills, fever, headache, lightheadedness.? E NT: Patient denies d ifficulty swallowing, ear pain, hoarseness, nosebleed. R espiratory: Patient denies c hest pain , cough , shortness of breath.? C ardiovascular: Patient denies c hest pain, chest pain with exertion, claudication, dizziness, dyspnea on exertion, orthopnea. G astrointestinal: Patient denies a bdominal pain , change in bowel habits.? G enitourinary: Patient denies b lood in the urine, difficulty urinating, frequent urination, painful urination. M usculoskeletal: Patient denies m uscle aches, painful joints, swollen joints, weakness. S kin: Patient denies h paula, itching, rash. N eurologic: Patient denies dizziness, gait abnormality. ? P sychiatric: Patient denies a nxiety, depressed mood, loss of appetite.? * Medical History: N o Reported Medical History.Medical History Verified. * Surgical History: t onsillectomy . * Family History: 1 brother(s) - healthy. . mother - healthy dad - healthy paternal grandmother - breast cancer. * Social History: T obacco Use: T obacco Control (Standard) T obacco use: N onsmoker D rug/Alcohol: A OLIVE-C (Standard) D id you have a drink containing alcohol in the past year? Y es H ow often did you have a drink containing alcohol in the past year? M onthly or less (1 point) H ow many drinks did you have on a typical day when you were drinking in the past year? 5 or 6 drinks (2 points) H ow often did you have six or more drinks on one occasion in the past year? N ever (0 point) P oints 3 I nterpretation N egative D rugs/Alcohol: C affeine I ntake: e nergy drink once a week Do you smoke marijuana?: Denies. Do you drink alcohol?: socially. S NEELAM Screening: F ood Insecurity C urrently or in the past 3 months, have you worried your food would run out before you had money to buy more? N o I n the past 12 months, have you run out of food or been unable to get more? N o Transportation C urrently or in the past 3 months, has lack of transportation kept you from medical appointments, getting food or medicine, provide care to a family member? N o Utilities C urrently or in the past 12 months, have you or household members gone without utilities (heat, water, electricity)? N o Employment Status A re you currently unemployed and requesting resources? N o Interpersonal Safety A re you currently concerned about physical or emotional safety? N o I n the past 12 months, have you been hit, slapped, kicked or otherwise physically hurt by someone? N o I n the past 12 months, have you been humiliated or emotionally abused in other ways by your partner or ex-partner, friend/family member? N o Housing Insecurity A re you currently without housing? N o A re you currently worried about losing your housing? N o * Medications: N one * Allergies: P enicillin: rash. Objective: * Vitals: T emp:97.5F, HR:sittin/min, BP:Left:120/80mm Hg, Wt:165lbs, Ht:70in, BMI:23.67Index, RR:16/min, Oxygen sat %:99%. * Examination: G eneral Examination: GENERAL APPEARANCE: i n no acute distress, well developed, well nourished. HEAD: n ormocephalic, atraumatic. EYES: p upils equal, round, reactive to light and accommodation. EARS t ympanic membrane intact, clear. NOSE: s eptum intact , nares patent. ORAL CAVITY: m ucosa moist. THROAT: c lear , no erythema , no exudate. NECK/THYROID: n serene supple, full range of motion, no cervical lymphadenopathy. SKIN: n o suspicious lesions, warm and dry. HEART: n o murmurs, regular rate and rhythm, S1, S2 normal.? LUNGS: c lear to auscultation bilaterally. ABDOMEN: n o masses palpable, no organomegaly , soft, nontender. MUSCULOSKELETAL: f ull range of motion. EXTREMITIES: f ull range of motion , no clubbing, cyanosis, or edema. NEUROLOGIC: n onfocal, motor strength normal upper and lower extremities, sensory exam intact. PSYCH: a lert, , cooperative with exam. ? Assessment: * Assessment: 1. S creening for tuberculosis - Z11.1 2 . A nnual physical exam - Z00.00 (Primary) Plan: * Treatment: Value Reference Range C olor LT YELLOW * C larity CLEAR * G lucose NEG * B ilirubin NEG * K etones NEG * S pecific [place] 1.020 * B lood NEG * p H 6.5 * P rotein NEG * U robilinogen NORM * N itrites NEG * L eukocytes NEG Notes: - Patient is overall healthy with a normal physical exam - He is up to date with all his immunizations - Screening for TB was done and returned negative ??2.?Screening for tuberculosis?LAB: QUANTIFERON(R)-TB GOLD PLUS, 1 TUBE (Collection Date & Time - 11/03/2024 02:04 PM) * Immunizations: Immunization record has been reviewed and updated. * Procedure Codes: 8 0061 CARDIAC RISK, 82981 GENERAL HEALTH PANEL * Follow Up: 1 Year * Billing Information: * Visit Code: 36611 Preventive Care New Pt. Age 18-39. * Procedure Codes: 51048 CARDIAC RISK. 20212 GENERAL HEALTH PANEL. * Electronic signature of Bashir Villagomez DO on 01/31/2025 at 11:08 AM CDT Sign off status: Pending * Provider: Carmelina VILLAGOMEZ DO Date: 0 11/03/2024 Generated for Carlos Enrique houston/Dottie/eTransmitting on: 0 01/31/2025 11:08 AM CDT History and Physical Notes * HPI (History of Present Illness) Category Sub-Category Detail Notes Category Not es General pt here to est. care and for annual physical doing well [facility] [employer] Depression Screening PHQ-2 (2015 Edition) Little interest or pleasure in doing things?: Not at all Feeling down, depressed, or hopeless?: N ot at all Total Score: 0 Examination Category Sub-Category Detail Notes Category Not es General Examination GENERAL APPEARANCE: in no ac gisela distress, well developed, well nourished HEAD: normocephalic, atrau matic EYES: pupils equal, round, reactive to light and accommodation EARS tympanic membrane in tact, clear NOSE: septum intact , nare s patent THROAT: clear , no erythema , no exudate NECK/THYROID: neck supple, full ra nge of motion, no cervical lymphadenopathy HEART: no murmurs, regular rate and rhythm, S1, S2 normal LUNGS: clear to auscultatio n bilaterally ABDOMEN: no masses palpable, no organomegaly , soft, nontender NEUROLOGIC: nonfocal, motor stre ngth normal upper and lower extremities, sensory exam intact SKIN: no suspicious lesion s, warm and dry EXTREMITIES: full range of motion , no clubbing, cyanosis, or edema MUSCULOSKELETAL: full range of motion PSYCH: alert, , cooperative with exam ORAL CAVITY: mucosa moist
--- OUTSIDE RECORDS SUMMARY | 2024-11-29 05:45 | XMS_ITS ---
Author Organization [facility] Address [address] [place] [address] Care Team Providers Care Software Tools Build Engineer Name Role Phone Socorro Villagomez Primary Care Provider [phone] Allergies Allergen (clinical drug ingredient) Drug/Non Drug Allergy documented on EMR Reaction Allergy Type Onset Date Status Penicillin rash Drug Allergy Active REASON FOR VISIT Bilateral ear itching occasional pain x two weeks patient seen at Urgent Care 2- 3 months ago with same symptoms told had an infection antibiotic given and completed Social History Tobacco Use: Social History Observation [...] Points 3 Interpretation Negative Vital Signs Temperature 98.2 degrees Fahrenheit 11/30/19 25 Heart Rate 74 /min 11/29/2024 Blood pressure systolic 110 mm Hg 11/30/19 25 Blood pressure diastolic 70 mm Hg 025 Weight 165 lbs 11/29/2024 Height 70 in 11/29/2024 BMI 23.67 kg/m2 11/29/2024 Oximetry 98 % 11/29/2024 Encounters Encounter Location Date Provider Diagnosis [facility] Marc Villagomez [address] [place] [id number] 11/29/2024 Socorro Villagomez Ear discomfort H92.09 Assessments Encounter Date Diagnosis (ICD Code) Assessment Notes Treatment Notes Treatment Clinical Notes Section Notes 11/29/2024 Ear discomfort (ICD-10 - H92.09) Patient instructed to take 10 mg Claritin daily. Patient also instructed to put mineral oil in the ears. Call Thursday, if nto better will write steroid prescription. 11/29/2024 Other Patient seen Adama Ardon OMS-III, supervised by Dr. Socorro Villagomez Plan Of Treatment Next Appt Details Follow Up: prn, Reason: Progress Notes * LYNDA EASLEYDOB:2005 ( 19 yo M)Acc No.[id number]:11/29/2024 Progress Notes Patient: YLNDA CATES Provider: Carmelina VILLAGOMEZ DO :2005 A ge:19 Y S ex:Male Date:11/29/2024 Address:[address] [place] [address] VINOD [place], [facility] Subjective: * Chief Complaints: * 1 . Bilateral ear itching occasional pain x two weeks patient seen at Urgent Care 2-3 months ago with same symptoms told had an infection antibiotic given and completed. * HPI: c hronic care: Patient had bilateral, severe itching of ears two months ago. He went to urgent care and got 1 week of antibitoics, after which itching resolved for one week before returning stronger than before. He has tried to remove wax with debrox but it had no effect. He hasn not been in a [place] or river in a very long time. He does not camp. He went into a pool on November 11, after the itching had returned. He denies feeling dizzy, or loss of hearing, or discharge from ears, eyes, or nose. He has not been ill recently. * ROS: G eneral/Constitutional: Patient denies c hills, fever, headache, lightheadedness.? E NT: Patient denies d ifficulty swallowing, changes to hearing or vision, h oarseness, nosebleed. P atient complaining of B ilateral ear itching. ? R espiratory: Patient denies c hest pain [...] mood, loss of appetite.? * Medical History: * Social History: T obacco Use: T [...] P oints 3 I nterpretation N egative * Medications: N one * Allergies: P enicillin: rash. Objective: * Vitals: T emp:98.2F, HR:sittin/min, BP:Right:110/70mm Hg, Wt:165lbs, Ht:70in, BMI:23.67Index, Oxygen sat %:98%. * Examination: G eneral Examination: GENERAL APPEARANCE: i n no acute distress, well developed, well nourished. HEAD: n ormocephalic, atraumatic. EYES: p upils equal, round, reactive to light and accommodation, full ROM eye movement no pain, normal doll's eye reflex. EARS t ympanic membrane intact, some earwax in both ears.? NOSE: s eptum intact , nares patent. ORAL CAVITY: m ucosa moist. THROAT: c lear , no erythema , no exudate. NECK/THYROID: n serene supple, full range of motion, no cervical lymphadenopathy, no carotid bruit. SKIN: n o suspicious lesions, warm and dry. HEART: n o murmurs, regular rate and rhythm, S1, S2 normal.? LUNGS: c lear to auscultation bilaterally. MUSCULOSKELETAL: f ull range of motion, 5/5 strength in hands, arms, and legs. EXTREMITIES: f ull range of motion , no clubbing, cyanosis, or edema. NEUROLOGIC: n onfocal, motor strength normal upper and lower extremities, sensory exam intact. PSYCH: a lert, , cooperative with exam. ? Assessment: * Assessment: 1. E ar discomfort - H92.09 (Primary) Plan: * Treatment: 2. O thers Clinical Notes: Patient seen by Emperatriz Ardon OMS-III, supervised by Dr. Socorro Villagomez ? * Follow Up: p rn * Billing Information: * Visit Code: [id number] OFFICEOUTPATIE. * Procedure Codes: * Electronic signature of Bashir Villagomez DO on 01/31/2025 at 11:07 AM CDT Sign off status: Pending * Provider: Carmelina VILLAGOMEZ, DO Date: 0 11/29/2024 Generated for Carlos Enrique houston/Dottie/Eulaliaitting on: 0 01/31/2025 11:07 AM CDT History and Physical Notes * HPI (History of Present Illness) Category Sub-Category Detail Notes Category Not es chronic care Patient had bilateral, severe itching of ears two months ago. He went to urgent care and got 1 week of antibitoics, after which itching resolved for one week before returning stronger than before. He has tried to remove wax with debrox but it had no effect. He hasn not been in a [place] or river in a very long time. He does not camp. He went into a pool on November 11, after the itching had returned. He denies feeling dizzy, or loss of hearing, or discharge from ears, eyes, or nose. He has not been ill recently. Examination Category Sub-Category Detail Notes Category Not es General Examination GENERAL APPEARANCE: in no ac gisela distress, well developed, well nourished HEAD: normocephalic, atrau matic EYES: pupils equal, round, reactive to light and accommodation, full ROM eye movement no pain, normal doll's eye reflex EARS tympanic membrane in tact, some earwax in both ears NOSE: septum intact , nare s patent THROAT: clear , no erythema , no exudate NECK/THYROID: neck supple, full ra nge of motion, no cervical lymphadenopathy, no carotid bruit HEART: no murmurs, regular rate and rhythm, S1, S2 normal LUNGS: clear to auscultatio n bilaterally NEUROLOGIC: nonfocal, motor stre ngth normal upper and lower extremities, sensory exam intact SKIN: no suspicious lesion s, warm and dry EXTREMITIES: full range of motion , no clubbing, cyanosis, or edema MUSCULOSKELETAL: full range of motion , 5/5 strength in hands, arms, and legs PSYCH: alert, , cooperative with exam ORAL CAVITY: mucosa moist
--- OUTSIDE RECORDS SUMMARY | 2025-01-31 11:07 | XMS_ITS | Patient Health Record ---
Author Organization [employer] Address [address] [id number] Care Team Providers Care Watch Crystal Cutter Name Role Phone ROSA ISELA WHITE Primary Care Provider Allergies Allergen (clinical drug [...] Risk Notes Problem History of tonsillectomy (situation) (107733537) S/P tonsillectomy (Z90.89) Active confirmed Problem Tonsillolith (3858225) Tonsillolith (J35.8) Active confirmed Plan Of Treatment No Information Insurance Providers Payer Name Payer Address Payer Phone Subscriber Number Group Number Insured Name Patient Relationship to Insured Coverage Start Date Coverage End Date [facility] [address] [place], [place] [id number] Liliana Nicole Child - Insured has Financial Responsibility Medical (General) History Medical History History ICD Code Tonsil stones Chronic seasonal throat infection Full term born @ [facility] - sect ion Dry cough 786.2 Chronic tonsillitis J35.01 Surgical History Surgery Date(Month/Year) Hospitalization History Reason Date(Month/Year) orbital cellulitis 2004
--- OUTSIDE RECORDS SUMMARY | 2025-01-31 11:07 | XMS_ITS | Patient Health Record ---
Author Organization [facility] Address [address] [place] [address] Care Team Providers Care Public Affairs Director Name Role Phone Zion FARIA, Sandor Primary Care Provider JONI Conrad Unavailable [phone] Allergies Allergen (clinical drug ingredient) Drug/Non Drug Allergy documented on EMR Reaction Allergy Type Onset Date Status PENICILLIN Unknown Drug Allergy Active Reason For Referral No Information Problems Problem Type SNOMED Code ICD Code Onset Dates Problem Status W/U Status Risk Notes Problem Chronic disease of tonsils AND/OR adenoids (16793516) Other chronic diseases of tonsils and adenoids (J35.8) Active confirmed Problem Bad breath - halitosis (11738241) Halitosis (R19.6) Active confirmed Plan Of Treatment No Information Insurance Providers Payer Name Payer Address Payer Phone Subscriber Number Group Number Insured Name Patient Relationship to Insured Coverage Start Date Coverage End Date [facility] [address] [place], [place] [id number] MILAD EASLEY Child - Insured has Financial Responsibility
--- OUTSIDE RECORDS SUMMARY | 2025-01-31 11:07 | XMS_ITS | Clinical Summary ---
Author Organization [facility] Address [address] [place] [address] Care Team Providers Care Senior Windows Engineer Name Role Phone Sandor Donovan MD Primary Care Provider +1- [phone] Social History Tobacco Use Types Packs/Day Years [...] patient's age to complete this topic Insurance [facility] Care Teams Senior Windows Engineer Relationship Specialty Start Date End Date Sandor Donovan MD PCP - General Pediatrics 07/06/19
--- OUTSIDE RECORDS SUMMARY | 2025-01-31 11:07 | XMS_ITS | Patient Health Record ---
Author Organization [facility] Address [address] [place] [address] Care Team Providers Care Cone Trucker Name Role Phone AylinSocorro davey Primary Care Provider [phone] Allergies Allergen (clinical drug ingredient) Drug/Non Drug Allergy documented on EMR Reaction Allergy Type Onset Date Status Penicillin rash Drug Allergy Active Results Component Value Reference Range Notes Automated Urinalysis (dipsti ck) Reviewed date:11/04/2024 09:51:21 AM Interpretation:Normal Performing Lab: Notes/Report: Normal Color LT YELLOW Clarity CLEAR Glucose NEG Bilirubin NEG Ketones NEG Specific [place] 1.020 Blood NEG pH 6.5 Protein NEG Urobilinogen NORM Nitrites NEG Leukocytes NEG QUANTIFERON(R)-TB GOLD PLUS, 1 TUBE (Not yet reviewed by provider) Interpretation: Performing Lab:CB, [facility], [facility] HealthMlclNA[address] Eulogio Wisdom Notes/Report: Received Date: FASTING QUANTIFERON(R)-TB [...] T-lymphocytes. For additional information, please refer to https://eSNF.Delivery Agent/faq/ZJQ901 (This link is being provided for informational/ educational purposes only.) M. tuberculosis-specific antigens designed to elicit responses from TB antigen primed CD4+ helper and CD8+ TSH Reviewed date:11/04/2024 09:51:21 AM Interpretation:1.61 Performing Lab:BONG Player [facility]1355 [employer], NeuroSigmaZaonXI[address] Eulogio Wisdom Notes/Report: Received Date: FASTING FASTING FASTING FASTING TSH 1.61 0.40-4.50 mIU/L CBC (INCLUDES DIFF/PLT) Reviewed date:11/04/2024 09:51:21 AM Interpretation:Normal Performing Lab:BONG [facility]13[facility] [employer], NeuroSigmaGofeAD[address] Eulogio Wisdom Notes/Report: Received Date: FASTING FASTING [...] MPV 10.9 7.5-12.5 fL ABSOLUTE NEUTROPHILS 2145 2997-5962 cells/uL ABSOLUTE LYMPHOCYTES 2684 850-3900 cells/uL ABSOLUTE MONOCYTES 594 200-950 cells/uL ABSOLUTE EOSINOPHILS 50 15-500 cells/uL ABSOLUTE BASOPHILS 28 0-200 cells/uL NEUTROPHILS 39 LYMPHOCYTES 48.8 MONOCYTES 10.8 EOSINOPHILS 0.9 BASOPHILS 0.5 COMPREHENSIVE METABOLIC PANE L Reviewed date:11/04/2024 09:51:21 AM Interpretation:ast 44 Performing Lab:BONG Player XSt. [facility] Servicese1355 [facility], Essent[facility] HealthOkevZF[address] Eulogoi Wisdom Notes/Report: Received Date: FASTING FASTING FASTING [...] 76 hdl 59 trig 48 Performing Lab:BONG Player XSt. Josephs Area Health Servicese1355 [facility], [facility] HealthHqthPQ[address] Eulogio Wisdom Notes/Report: Received Date: FASTING FASTING [...] LDL-C. Luis MEMBRENO et al. KEENAN. 2013;310(19): 4830-6647 (http://education.Scali/faq/PEI526) CHOL/HDLC RATIO 2.5 <5.0 (calc) NON HDL [...] Provider Diagnosis [facility] Isaacang Altamirano [address] [place] [phone] 11/03/2024 Socorro Altamirano Annual physical exam Z00.00 and Screening for tuberculosis Z11.1 [facility] Isaacfrancois Altamirano [address] [place] [phone] 11/29/2024 Socorro Altamirano Ear discomfort H92.0 9 [...] Emperatriz Ardon OMS-III, supervised by Dr. Socorro Alatmirano Plan Of Treatment Pending Test Test Name Order Date QUANTIFERON(R)-TB GOLD PLUS, 1 TUBE 10/10 Insurance Providers Payer Name Payer Address Payer Phone Subscriber Number Group Number Insured Name Patient Relationship to Insured Coverage Start Date Coverage End Date [facility] [address] [place] [address] [id number] Liliana Easley Child - Insured has Financial Responsibility Medical (General) History Surgical History Surgery Date(Month/Year) tonsillectomy
--- OUTSIDE RECORDS SUMMARY | 2025-01-31 11:08 | XMS_ITS | Clinical Summary ---
Author Organization [facility] [address] Address [address] [place] [address] Care Team Providers Care Collaborating Supervising Physician Name Role Phone Unknown, Notinfile Primary Care Provider Unavail able Allergies Active Allergy Reactions Criticality Noted Date Comments Penicillins Rash Medium 01/19/2025 Medications No known medications Active Problems No known active problems Encounters Date Type Department Care Team Description 01/19/2025 2:45 PM CDT Office Visit [facility] Medical Group Convenient Care at [address] [address] Catrachita Correa PA Dizziness (Primary [...] 01/13/2025, , 03/24/2013, Additional history exists Insurance [facility] Care Teams Collaborating Supervising Physician Relationship Specialty Start Date End Date Unknown, Notinfile PCP - General 01/19/25
--- OUTSIDE RECORDS SUMMARY | 2025-01-31 11:08 | XMS_ITS | Clinical Summary ---
Author Organization [facility] (Prior to 02/08/22) Address [address] [place] [address] Care Team Providers Care Boom Master Name Role Phone Unavailable Primary Care Provider Unavailabl e Social History Tobacco Use Types Packs/Day Years Used Date Never Assessed Sex Assigned at Date Recorded Not on file Plan of Treatment Health Maintenance Due Date Last Done Comments Annual Wellness Visit 2003 COVID-19 Vaccine (#1) 2003 Influenza Vaccine 01/09/2025
== END 2025-01-31 10:19 | disposition home or self-care (01) ==
LOC: ANHAUDIO 10:18
PROVIDERS: Visit Provider Otolaryngology Otolaryngology/Facial Plastic Surgery
DX: H91.93 Unspecified hearing loss, bilateral (principal); H81.20 Vestibular neuronitis, unspecified ear
CPT/HCPCS: 92557; 92567